=== PATIENT | male | born 1980 | race Caucasian/White ===

== ENCOUNTER 2017-05-05 21:39 | Emergency (ER) | payer MEDICAID ==
[2017-05-05] MEDS ORDERED: IPRATROPIUM/ALBUTEROL 3 ML DEYVIAL ONE (21:44)
[2017-05-05] MEDS ORDERED: NS 1,000 ML IV ONE (21:46)
[2017-05-05] MEDS ORDERED: ALBUTEROL 3 ML DEYVIAL IH ONE (21:46)
[2017-05-05] MEDS ORDERED: IPRATROPIUM/ALBUTEROL 3 ML DEYVIAL IH ONE (21:46)
[2017-05-05] MEDS ORDERED: methylPREDNISolone SOD SUCC 125 MG/2 ML VIAL IVP ONE (21:46)
--- NOTE | 2017-05-05 21:48 | EDPHY ---
H & P Time Seen by Provider: 05/05/17 21:44 HPI/ROS: CHIEF COMPLAINT: Trouble breathing HISTORY OF PRESENT ILLNESS: Patient has a history of asthma was last hospitalized 11 years ago. Never intubated. He is a smoker and developed a cough and a cold yesterday and developed worsening shortness of breath today for the last 2 hours. Shortness of breath severe and worse with exertion or lying flat. Associated with cough but not productive. No fevers or chills. REVIEW OF SYSTEMS: Eye: no change in vision ENT: no sore throat Cardiac: no chest pain or syncope Pulmonary: HPI Abdomen: no vomiting, diarrhea, abdominal pain Musculoskeletal: no back pain Skin: no rash Neuro: no headache Constitutional: no fever : no urinary symptoms A comprehensive 10 point review of systems is otherwise negative aside from elements mentioned in the history of present illness. PAST MEDICAL HISTORY: Asthma Social history: Tobacco smoker, no recent travel or immobilization. Was living in [place], currently in [place]. General Appearance: Alert and conversant, cooperative. Eyes: No scleral icterus. ENT, Mouth: Normal mucous membranes. No angioedema. Respiratory: Bilateral wheezing with prolonged expiratory phase, increased work of breathing, no stridor or drooling. Cardiovascular: Regular rate and rhythm. Gastrointestinal: Abdomen is soft and non tender. Neurological: Alert and oriented x3. Normally conversant. Face symmetric, normal movement and sensation in all extremities. Skin: Warm and dry, no rashes. Musculoskeletal: No peripheral edema and no joint swelling. No calf tenderness. Psychiatric: Not agitated. Emergency Department course/MDM: DuoNeb, continuous albuterol, Solu-Medrol 125 mg IV. Additional supplemental oxygen applied for initial room air saturation of 83%. Clearly identical by his report, to his multiple previous asthma exacerbations. I think that CHF, pulmonary embolism, anemia, acidosis all unlikely. 2200: Patient has speaking in full sentences and less wheezing and greater air movement. Continuous albuterol nebulizer. Signed out to Dr. Montes with plan for serial exams. Discharge versus admission depending on clinical improvement. (Sanjay Rouse) Constitutional: Initial Vital Signs Temperature (C) 36.7 C 05/05/17 21:46 Heart Rate 102 H 05/05/17 21:46 Respiratory Rate 32 H 05/05/17 21:46 Blood Pressure 135/87 H 05/05/17 21:46 O2 Sat (%) 83 L 05/05/17 21:46 O2 Delivery Mode Room Air Allergies/Adverse Reactions: cats Allergy (Uncoded 05/05/17 21:50) Home Medications: Medication Instructions Recorded ALBUTEROL SULFATE 05/05/17 predniSONE [prednisone 20mg (RX)] 60 mg PO DAILY 7 Days tab 05/05/17 Medical Decision Making Differential Diagnosis: Differential diagnosis considered for shortness of breath including but not limited to pulmonary infectious process, COPD, asthma, pulmonary embolus and congestive heart failure. (Sanjay Rouse) Other Provider: 22:00 care assumed by me from Dr. Rouse pending improvement in his respiratory status and oxygenation. 00:05 patient is improved. He has no wheezing. Oxygen saturations are 94% on room air. He has been given albuterol MDI. I have also given a spacer. He will continue prednisone for the next 2 days. Will be referred to the [facility] for follow-up. (Seun Montes) - Data Points Medications Given: Discontinued Medications Albuterol (Proventil Neb) 3 ml IH EDNOW ONE Stop: 05/05/17 21:47 Last Admin: 05/05/17 21:53 Dose: 3 ml Albuterol Sulfate (Proventil Inh Prepack) 1 mdi TAKEHOME EDNOW ONE Stop: 05/05/17 22:02 Last Admin: 05/05/17 22:26 Dose: 1 mdi Albuterol/Ipratropium (Duoneb) 3 ml IH EDNOW ONE Stop: 05/05/17 21:47 Last Admin: 05/05/17 21:53 Dose: 3 ml Sodium Chloride (Ns) 1,000 mls @ 0 mls/hr IV ONCE ONE; Wide Open PRN Reason: Protocol Stop: 05/05/17 21:47 Last Admin: 05/05/17 21:51 Dose: 1,000 mls Methylprednisolone Sodium Succinate (Solu-Medrol) 125 mg IVP EDNOW ONE Stop: 05/05/17 21:47 Last Admin: 05/05/17 21:51 Dose: 125 mg Departure - Departure Disposition: Home, Routine, Self-Care Clinical Impression: Exacerbation of asthma Qualifiers: Asthma severity: moderate Asthma persistence: unspecified Qualified Code(s): J45.901 - Unspecified asthma with (acute) exacerbation Condition: Good Instructions: Albuterol (By breathing), Asthma (ED) Referrals: Mally Rod MD [[facility] Primary Care Provider] - As per Instructions [facility],. [Clinic] - As per Instructions Prescriptions: predniSONE [prednisone 20mg (RX)] 60 mg PO DAILY 7 Days tab
[2017-05-05] MEDS ORDERED: ALBUTEROL INH PREPACK MDI TAKEHOME ONE (22:01)
[2017-05-06 00:17] VITALS: BP 126/86; PULSE 78; RESP 16; TEMP 98.1; O2SAT 94
== END 2017-05-06 | disposition home or self-care (01) ==
DX: J45.901 Unspecified asthma with (acute) exacerbation (principal); F17.200 Nicotine dependence, unspecified, uncomplicated; E86.9 Volume depletion, unspecified
CPT/HCPCS: 96374; J2930